=== PATIENT | female | born 1985 ===

== ENCOUNTER 2017-02-14 10:49 | Inpatient (IN) | payer OTHER ==
[~2017-02-14] VITALS: Ht 175.3 cm; Wt 107.7 kg
[~2017-02-14 10:49] MED LIST: MOTRIN 800800 MG/TAB PO; PERCOCET 325 MG1 TA2 PO
[2017-04-04] VITALS (18 sets, daily range): BP systolic 89–114; BP diastolic 44–77; PULSE 62–93; TEMP 98.4–98.6
[2017-04-04] MEDS ORDERED: PRENATAL1 TA7 PO (09:48)
[2017-04-04 09:56] LABS: BASO % 0.4 % (0.0-2.0); EOS # 0.1 (0.0-0.7); EOS % 0.5 % (0-4.0); GRAN # 6.6 (1.4-6.5); GRAN % 69.7 % (42.2-75.2); LYMPH # 2.1 (1.2-3.4); LYMPH % 21.9 % (20.0-51.0); MEAN CELL VOLUME 86 fl (80.0-100.0); MEAN CORPUSCULAR HGB CONC 35 g/dl (33.0-37.0); MEAN PLATELET VOLUME 11.7 fl (7.4-10.4); MONO # 0.6 (0.1-0.6); MONO % 6.6 % (1.7-9.3); PLATELET COUNT 117 K/mm3 (130-400); RED BLOOD COUNT 3.92 M/mm3 (4.10-5.30); REDCELL DISTRIBUTION WIDTH-CV 13.4 % (11.5-14.5); WHITE BLOOD COUNT 9.5 K/mm3 (4.8-10.8)
[2017-04-04 09:59] LABS: HEMATOCRIT 33.7 % (37.0-47.0); HEMOGLOBIN 11.8 g/dl (12.5-16.0); MEAN CORPUSCULAR HEMOGLOBIN 30 pg (27.0-31.0)
[2017-04-05 01:40] VITALS: BP 108/70; PULSE 65; TEMP 98.7
[2017-04-05 04:20] VITALS: BP 107/58; PULSE 55; TEMP 97.3
[2017-04-05 07:59] LABS: BASO % 0.3 % (0.0-2.0); EOS # 0.1 (0.0-0.7); EOS % 0.9 % (0-4.0); GRAN % 62.7 % (42.2-75.2); LYMPH # 2.6 (1.2-3.4); LYMPH % 27.3 % (20.0-51.0); MEAN CELL VOLUME 88 fl (80.0-100.0); MEAN CORPUSCULAR HGB CONC 34 g/dl (33.0-37.0); MEAN PLATELET VOLUME 11.7 fl (7.4-10.4); MONO # 0.8 (0.1-0.6); MONO % 8.2 % (1.7-9.3); PLATELET COUNT 103 K/mm3 (130-400); RED BLOOD COUNT 3.38 M/mm3 (4.10-5.30); REDCELL DISTRIBUTION WIDTH-CV 13.8 % (11.5-14.5); WHITE BLOOD COUNT 9.6 K/mm3 (4.8-10.8)
[2017-04-05 08:03] LABS: HEMATOCRIT 29.8 % (37.0-47.0); HEMOGLOBIN 10.1 g/dl (12.5-16.0); MEAN CORPUSCULAR HEMOGLOBIN 30 pg (27.0-31.0)
[2017-04-05 08:30] VITALS: BP 112/67; PULSE 61; TEMP 97.6
[2017-04-05 16:15] VITALS: BP 114/64; PULSE 70; TEMP 97.9
[2017-04-05 20:15] VITALS: BP 116/62; PULSE 65; TEMP 97.5
[2017-04-06 07:45] VITALS: BP 101/60; PULSE 64; TEMP 97.7
[2017-04-06] MEDS ORDERED: PERCOCET 325 MG1 TA2 PO (08:37)
[2017-04-06] MEDS ORDERED: IBU800 M1 PO (08:37)
== END 2017-04-06 10:25 | disposition home or self-care (01) | DRG 766 ==
LOC: LDR 04-04 07:50 → OB 04-04 09:06 → EDSTATUS 04-19 07:49 → LDRO 04-19 10:48
PROVIDERS: Student in an Organized Health Care Education/Training Program
PROC: 10D00Z1 Extraction of Products of Conception, Low, Open Approach (ICD-10-PCS; principal; 2017-04-04)
DX: O34.211 Maternal care for low transverse scar from previous cesarean delivery (principal); N85.8 Other specified noninflammatory disorders of uterus; O69.82X0 Labor and delivery complicated by other cord entanglement, without compression, not applicable or unspecified; Z3A.39 39 weeks gestation of pregnancy; Z37.0 Single live birth
CPT/HCPCS: J0690; J1885; J2270; J2370; J2405; J2590; J7120